=== PATIENT | female | born 1985 | race Hispanic/Latino ===

== ENCOUNTER 2018-01-02 21:10 | Emergency (ER) | payer OTHER ==
--- NOTE | 2018-01-02 22:25 | ED PDOC ---
HPI: Female Pain Time Seen by Provider: 01/02/18 22:11 Chief Complaint (Nursing): Female Genitourinary Chief Complaint (Provider): crampy abd pain/ vaginal spotting History Per: Patient (32 y/o female LMP 09/17/2017 here for evaluation of lower abdominal cramping this week and vaginal spotting today. Has appt with Dr. Lagunas manager sap but has not seen as of yet. Denies any dysuria.) Past Medical History Reviewed: Historical Data, Nursing Documentation, Vital Signs Vital Signs: Last Vital Signs Temp 98.1 F 01/02/18 21:48 Pulse 86 01/02/18 21:48 Resp 18 01/02/18 21:48 BP 122/72 01/02/18 21:48 Pulse Ox 100 01/02/18 21:48 - Medical History PMH: Asthma - Family History Family History: States: Unknown Family Hx - Home Medications Home Medications: Ambulatory Orders Medication Instructions Recorded Cyclobenzaprine [Cyclobenzaprine 10 mg PO TID #20 tab 09/02/16 HCl] Ibuprofen [Motrin] 600 mg PO Q6 #20 tab 09/02/16 - Allergies Allergies/Adverse Reactions: Allergies Allergy/AdvReac Type Severity Reaction Status Date / Time Penicillins Allergy RASH Verified 01/02/18 21:48 Review of Systems ROS Statement: Except As Marked, All Systems Reviewed And Found Negative Physical Exam - Reviewed Nursing Documentation Reviewed: Yes Vital Signs Reviewed: Yes - Physical Exam Appears: Positive for: Well, Non-toxic, No Acute Distress Head Exam: Positive for: ATRAUMATIC, NORMAL INSPECTION, NORMOCEPHALIC Skin: Positive for: Normal Color, Warm, DRY Eye Exam: Positive for: EOMI, Normal appearance, PERRL ENT: Positive for: Normal ENT Inspection Neck: Positive for: Normal, Painless ROM Cardiovascular/Chest: Positive for: Regular Rate, Rhythm Respiratory: Positive for: CNT, Normal Breath Sounds Gastrointestinal/Abdominal: Positive for: Normal Exam, Soft Back: Positive for: Normal Inspection Extremity: Positive for: Normal ROM Neurologic/Psych: Positive for: Alert, Oriented - Laboratory Results Result Diagrams: 01/02/18 22:15 01/02/18 22:15 - ECG O2 Sat by Pulse Oximetry: 100 - Progress ED Course And Treament: transvaginal US: COMPARISON: No relevant prior studies available. FINDINGS: Gestation: Gestational sac. Yolk sac. No pole. Mean sac diameter of 0.8 cm , out of range. Uterus/cervix: 1.4 x 0.6 x 2.1 cm collection along gestational sac. Closed cervix. Ovaries: Normal ovaries. No adnexal masses. Free fluid: No significant free fluid. IMPRESSION: 1. Intrauterine , of uncertain viability. Recommend followup. 2. Subchorionic hemorrhage. Thank you for allowing us to participate in the care of your patient. Dictated and Authenticated by: Gregorio Oconnor MD Disposition - Clinical Impression Clinical Impression: Subchorionic hemorrhage, Threatened miscarriage in early - Patient ED Disposition Is Patient to be Admitted: No - Disposition Disposition: Routine/Home Disposition Time: 00:13 Condition: FAIR Instructions: Bleeding With (DC), Threatened Miscarriage (DC)
[2018-01-02 22:39] LABS: BASO # 0.1 K/uL (0.0-0.2); BASO % 0.6 % (0.0-2.0); EOS # 0.4 K/uL (0.0-0.7); EOS % 3.5 % (0.0-4.0); HEMOGLOBIN 12.3 g/dL (12.0-16.0); LYMPH # 3.1 K/uL (1.0-4.3); LYMPH % 29.7 % (20.0-40.0); MEAN CELL VOLUME 83.4 fl (81.0-99.0); MEAN CORPUSCULAR HEMOGLOBIN 27.4 pg (27.0-31.0); MEAN CORPUSCULAR HGB CONC 32.9 g/dL (33.0-37.0); MEAN PLATELET VOLUME 7.5 fl (7.2-11.7); MONO # 0.7 K/uL (0.0-0.8); MONO % 6.8 % (0.0-10.0); NEUT # 6.3 K/uL (1.8-7.0); NEUT % 59.4 % (50.0-75.0); RBC 4.47 Mil/uL (3.80-5.20); RED CELL DISTRIBUTION WIDTH 14.2 % (11.5-14.5); WHITE BLOOD COUNT 10.6 K/uL (4.8-10.8)
[2018-01-02 22:50] LABS: SQUAMOUS EPITHIAL 3 /hpf (0-5); URINE BACTERIA OCC (<OCC); URINE BILIRUBIN NEGATIVE (NEGATIVE); URINE BLOOD SMALL (NEGATIVE); URINE CLARITY SLIGHTY-CLOUDY (Clear); URINE COLOR YELLOW (YELLOW); URINE GLUCOSE (UA) NEG (Normal); URINE PROTEIN NEGATIVE (NEGATIVE); URINE UROBILINOGEN 0.2-1.0 mg/dL (0.2-1.0)
[2018-01-02 22:51] LABS: BLOOD UREA NITROGEN 9 mg/dl (7-17); CALCIUM 9.3 mg/dL (8.4-10.2); GFR AFRICAN-AMERICAN > 60; GFR NON-AFRICAN AMERICAN > 60; URINE LEUKOCYTE ESTERASE NEGATIVE Leu/uL (Negative)
[2018-01-03] MEDS ORDERED: Potassium Chloride 20 mEq ER Tab PO ONE (00:10)
[2018-01-03 00:35] VITALS: BP 130/86; PULSE 82; RESP 19; TEMP 98.6; O2SAT 99
--- NOTE | 2018-01-03 09:55 | US ---
PROCEDURE: OB Pelvic Ultrasound HISTORY: r/o ectopic LMP: 11/17/2017 COMPARISON: None available. FINDINGS: UTERUS: Gestational sac: Single intrauterine gestation. Measures 0.8 cm, out of range Yolk sac: Measures 0.3 cm. pole: Not yet identified Jina-gestational hemorrhage: 1.4 x 0.6 x 2.1 cm subchorionic bleed Date of delivery : 08/24/2018 (per LMP) Uterus measures 8.1 x 4.5 x 5.3 cm. Normal in size and appearance. CERVIX: Measures 3.6 cm. Long and closed. No cervical abnormality seen. RIGHT OVARY: Measures 2.6 x 1.2 x 2.1 cm. No mass lesion. Normal flow. LEFT OVARY: Measures 3.0 x 2.4 x 2.3 cm. No solid mass. Normal flow. FREE FLUID: None. OTHER FINDINGS: None. IMPRESSION: Single intrauterine gestation with yolk sac seen, but pole not yet identified. Small subchorionic bleed measuring up to 2.1 cm. Findings may represent early normal/ abnormal . Close clinical follow-up with serial pelvic sonography and serum beta HCG levels recommended.
== END 2018-01-03 00:40 | disposition home or self-care (01) ==
LOC: H.ER 21:10
DX: O20.0 Threatened abortion (principal); Z88.0 Allergy status to penicillin

== ENCOUNTER 2018-07-31 03:59 | Emergency (ER) | payer OTHER ==
[2018-07-31 04:38] VITALS: BMI 42.4
[2018-07-31] MEDS: Lactated Ringer's 1,000 ML IV SCH ×3 (04:50→08:52)
[2018-07-31 05:21] LABS: BASO % 0.4 % (0.0-2.0); EOS # 0.1 K/uL (0.0-0.7); EOS % 0.5 % (0.0-4.0); HEMOGLOBIN 12.1 g/dL (12.0-16.0); LYMPH # 0.7 K/uL (1.0-4.3); LYMPH % 6.3 % (20.0-40.0); MEAN CELL VOLUME 79.5 fl (81.0-99.0); MEAN CORPUSCULAR HEMOGLOBIN 26.4 pg (27.0-31.0); MEAN CORPUSCULAR HGB CONC 33.2 g/dL (33.0-37.0); MEAN PLATELET VOLUME 8.7 fl (7.2-11.7); MONO # 0.5 K/uL (0.0-0.8); MONO % 4.6 % (0.0-10.0); NEUT # 9.9 K/uL (1.8-7.0); NEUT % 88.2 % (50.0-75.0); PLATELET COUNT 241 K/uL (130-400); RBC 4.59 Mil/uL (3.80-5.20); RED CELL DISTRIBUTION WIDTH 14.7 % (11.5-14.5); WHITE BLOOD COUNT 11.2 K/uL (4.8-10.8)
[2018-07-31 05:26] LABS: ALBUMIN 3.6 g/dL (3.5-5.0); ALT/SGPT 18 U/L (9-52); AST/SGOT 19 U/L (14-36); BLOOD UREA NITROGEN 13 mg/dl (7-17); CALCIUM 9.2 mg/dL (8.4-10.2); GFR NON-AFRICAN AMERICAN > 60; URIC ACID 5.5 mg/Dl (2.2-7.5)
[2018-07-31 06:55] LABS: BANDS 5 % (0-2); LYMPHOCYTE 5 % (20-50); MONOCYTE 4 % (0-10); NEUTROPHIL 86 % (42-75); PLATELET ESTIMATE NORMAL (NORMAL); TOTAL CELLS COUNTED 100
[2018-07-31 06:56] LABS: ANISOCYTOSIS SLIGHT; SPHEROCYTES SLIGHT
[2018-07-31 07:53] LABS: SQUAMOUS EPITHIAL 2 /hpf (0-5); URINE BACTERIA OCC (<OCC); URINE BILIRUBIN NEGATIVE (NEGATIVE); URINE BLOOD NEGATIVE (NEGATIVE); URINE CLARITY CLOUDY (Clear); URINE COLOR YELLOW (YELLOW); URINE GLUCOSE (UA) NEG (NEGATIVE); URINE LEUKOCYTE ESTERASE NEG Leu/uL (Negative); URINE PROTEIN NEGATIVE (NEGATIVE); URINE UROBILINOGEN 0.2-1.0 mg/dL (0.2-1.0)
[2018-07-31] MEDS ORDERED: Promethazine 6.25 MG in Sodium Chloride 0.9% 50 ML IVPB ONE (08:21)
[2018-07-31] MEDS ORDERED: Lactated Ringer's 1,000 ML IV SCH (08:30)
[2018-07-31 16:52] VITALS: BP 111/52; PULSE 100; TEMP 97.7; O2SAT 98
--- NOTE | 2018-07-31 19:23 | OBDCSUM ---
Datetime: 07/31/2018 11:32 Discharged to, Provider: Home Follow up at, Provider: Dr. Liriano Disch Instr Activity: Normal activity Disch Instr Diet: Regular Discharge Time: 07/31/2018 11:32 Follow up in weeks, Provider: Next scheduled appt (Friday) Disch Referrals: None Discharge Comment, Provider: BRAT diet and increase as tolerated Discharge Diagnosis Prov Other: Gastroenteritis
--- NOTE | 2018-07-31 19:24 | OBHP ---
Datetime: 07/31/2018 12:00 Admit Comment, IP Provider: Addendum @ 12:00 - Patient seen and evaluated several times this morning . Had some improvement with Zofran but nausea persisted, given phenergan with improvement. Had severa l episodes of diarrhea but was able to tolerate PO liquids without issue. Lab work was negative and r eassuring, no signs of intraabdominal infection such as appendicitis. EFM was reactive and appropriat e. Patient felt comfortable with discharge home and return precautions given. She will make a follow- up appt with Dr. Liriano for next week. All questions answered, patient in stable condition. Diana Weber MD OB Fellow OB Hospitalist note: Agre with ntoe. I checked this patinet at 9am - SVE closed...cleared for dis charge today...spoke with PMD and aware MAHNDO Datetime: 07/31/2018 04:40 IP Adm Impression: , intrauterine IP Admit Plan: Observation/Evaluation Pelvic Type - PN: Not Done Extremities - PN: Normal Abdomen - PN: Normal Back - PN: Normal Breast - PN: Not Done Lungs - PN: Normal Heart - PN: Normal Thyroid - PN: Not Done Neurologic - PN: Normal HEENT - PN: Normal General - PN: Normal FHR - Baseline A Provider: 150 EGA AdmitDate IP: 35.1 Vital Signs Provider: Reviewed IP Chief Complaint: Maternal discomfort NICHD Variability Prov Fetus A: Moderate 6-25bpm NICHD Accel Fetus A IP Provider: 15X15 FHR Category Provider Fetus A: Category I NICHD Decel Fetus A IP Provider: None Genitourinary Exam: Not Done DTRs - PN: Not Done
== END 2018-07-31 11:32 | disposition home or self-care (01) ==
LOC: H.EROB2 03:59
DX: O26.93 Pregnancy related conditions, unspecified, third trimester (principal); R10.2 Pelvic and perineal pain; R19.7 Diarrhea, unspecified; Z3A.35 35 weeks gestation of pregnancy
CPT/HCPCS: 80053; 81003; 83615; 84550; 85025; 96361; 96374; 99283; J2405; J2550; J7120

== ENCOUNTER 2018-09-03 06:42 | Emergency (ER) | payer OTHER ==
[2018-09-03 18:36] VITALS: BP 124/81; PULSE 90; TEMP 98.2; O2SAT 100
[2018-09-03 19:44] VITALS: BMI 43.7
--- NOTE | 2018-09-04 01:08 | OBADHP ---
Datetime: 09/03/2018 20:58 Admit Comment, IP Provider: PNP: Dr. Liriano Pt is a 33 y/o at EGA of 40.0wk, LMP of 11/17/17, KARIE 09/03/18 presented for induction of lab or after being found to have oligo. Denies any vb, loss of fluid. She endorses +FM _ intermittent ctx . She denied any f/c/n/v/d/cp or sob. OBGYNx: Hematoma early in which resolved, 1 2012 PMHx: Asthma, SMA carrier, CF carrier Meds: Breo, Albuterol PRN, PNV All: penicillin (reaction unknown) FMHx: Dad-stomach ca-2010, Mom-thyroid ca- 2012 SurgHx: None SOCHx: Denies tobacco, alcohol or drug use ROS:all 12 points reviewed and are neg unless otherwise mentioned in HPI PE: obese female sitting upright breathing comfortably Cardio: s1s2 no murmurs Lungs: cta b/l Abd: soft, gravid, BS+, nontender, no rigidity, no guarding Ext: nonedematous A/P: Pt is a 33 y/o at EGA of 40.0wk, LMP of 11/17/17, KARIE 09/03/18 admitted for induction of labor after being found to have oligo. -Admit to unit -FHR monitoring -Cervidil Case discussed with Dr. Ivonne Deluca JP [place] Abdomen - PN: Normal Lungs - PN: Normal Heart - PN: Normal General - PN: Normal Gestation - Est Wks by US: 40.0 IP Hx Assessment: The History has been Reviewed and is Current Vital Signs Provider: Reviewed IP Chief Complaint: Uterine contractions; Scheduled induction of labor NICHD Variability Prov Fetus A: Moderate 6-25bpm NICHD Accel Fetus A IP Provider: [id number] NICHD Decel Fetus A IP Provider: None EGA AdmitDate IP: 40.0 IP Admit Plan: Admit to unit Datetime: 09/03/2018 08:06 Extremities - PN: Normal HEENT - PN: Normal FHR - Baseline A Provider: 140 Membranes, Provider: Intact Contraction Comments Provider: Q6-7 Comments, ACOG Physical Exam: GEN: Lying in bed NAD HEENT: NCAT CARD: RRR + S1S2 RESP: CTA, no wheezing, rales or rhonchi GI: Gravid, + BS, no tenderness to palpation EXT: No edema, no calf tenderness Bimanual 1cm, thick and high FHR 140's, moderate variability, 15x15 accelerations, no decelerations Pool Provider: Negative FHR Category Provider Fetus A: Category I Dilatation, Provider: 1 IP Adm Impression: Term, intrauterine Datetime: 07/31/2018 04:40 Pelvic Type - PN: Not Done Back - PN: Normal Breast - PN: Not Done Thyroid - PN: Not Done Neurologic - PN: Normal Genitourinary Exam: Not Done DTRs - PN: Not Done
== END 2018-09-03 10:27 | disposition home or self-care (01) ==
LOC: H.EROB2 06:42 → H.L&D 07:14 → H.EROB2 10:27
DX: O26.93 Pregnancy related conditions, unspecified, third trimester (principal); R10.2 Pelvic and perineal pain; O26.853 Spotting complicating pregnancy, third trimester; O48.0 Post-term pregnancy; Z3A.40 40 weeks gestation of pregnancy

== ENCOUNTER 2018-09-03 19:15 | Inpatient (IN) | payer OTHER ==
[2018-09-03 21:13] VITALS: BMI 43.7
[2018-09-03 21:37] LABS: BASO # 0.1 K/uL (0.0-0.2); BASO % 0.7 % (0.0-2.0); EOS # 0.2 K/uL (0.0-0.7); HEMOGLOBIN 11.8 g/dL (12.0-16.0); LYMPH # 2.2 K/uL (1.0-4.3); LYMPH % 20.3 % (20.0-40.0); MEAN CELL VOLUME 80.5 fl (81.0-99.0); MEAN CORPUSCULAR HEMOGLOBIN 26.9 pg (27.0-31.0); MEAN CORPUSCULAR HGB CONC 33.4 g/dL (33.0-37.0); MEAN PLATELET VOLUME 9.6 fl (7.2-11.7); MONO # 0.7 K/uL (0.0-0.8); NEUT # 7.8 K/uL (1.8-7.0); RBC 4.38 Mil/uL (3.80-5.20); RED CELL DISTRIBUTION WIDTH 17.5 % (11.5-14.5)
[2018-09-03 21:39] LABS: EOS % 1.6 % (0.0-4.0); MONO % 6.4 % (0.0-10.0); NRBC % 0.1 % (0.0-0.0)
[2018-09-03 22:29] VITALS: RESP 18
[2018-09-04] MEDS ORDERED: Lactated Ringer's 1,000 ML IV SCH (09:45)
[2018-09-04] MEDS ORDERED: Fentanyl/Bupivacaine HCl 250 ML EPI ONE (10:20)
[2018-09-04] MEDS ORDERED: Bupivacaine HCl 0.5% PF (30 ml) Inj ONE (10:33)
[2018-09-04] MEDS: Lactated Ringer's 1,000 ML IV SCH ×4 (10:45→21:45)
[2018-09-04] MEDS ORDERED: Oxytocin 30 UNIT in NS 500 ml 30 UNITS/500 ML BAG IV ONE (13:34)
[2018-09-05] MEDS ORDERED: OXYTOCIN/0.9 % NS 20 UNIT/1,000 ML BAG IV ONE (00:10)
[2018-09-05] MEDS ORDERED: Oxytocin 30 UNIT in NS 500 ml 30 UNITS/500 ML BAG IV ONE (00:10)
[2018-09-05] MEDS: Lactated Ringer's 1,000 ML IV SCH (01:00)
[2018-09-05] MEDS ORDERED: Lactated Ringer's 1,000 ML IV ONE (02:05)
[2018-09-05] MEDS ORDERED: Morphine 1 mg/ml preservative-free Inj(Duramorph) ONE (02:25)
[2018-09-05] MEDS ORDERED: Bupivacaine HCl 0.5% PF (30 ml) Inj ONE (02:25)
[2018-09-05] MEDS ORDERED: Oxycodone/Acetaminophen 5/325 mg Tab PO PRN ×3 (03:57→09:50)
--- NOTE | 2018-09-05 04:26 | OBDS ---
DELIVERY PERSONNEL Delivery Doctor: Ridge Solano MD Screen Printing Inspector: Polly BEDOYA Anesthesiologist: Dr. Chauhan Resident: Dr. Chapman MATERNAL INFORMATION Delivery Anesthesia: Epidural Medications in Delivery: Pitocin, Clindamycin, Gentamicin Placenta Cultured: No Provider Comments: Pre-op dx: 33 yo G1 at 40+2 wks w/ arrest of descent and nonreassuring trac ing Post-op dx: Same Procedure: Primary low transverse section Surgeon: Russ Assistants: Drs. Diana Weber, OB fellow and Emeli Chapman, PGY-1 Anesthesia: Epidural Anesthesiologist: Dr. Chauhan Findings: Viable male infant deliverd through thick meconium at 0255. Apgars 9 and 9. Wt 8#5.3. NL appearing uterus, tubes, and ovaries Complications: None EBL: 900 mL LABOR SUMMARY EDC: 09/03/2018 00:00 No. Babies in Womb: 1 Attempted: No Labor Anesthesia: Epidural LABOR INFORMATION Reason for Induction: Oligohydramnios Cervical Ripening Agents: Cervidil Oxytocin: Augmentation Group B Beta Strep: Negative Antibiotics # of Doses: N/A Antibiotics Time of Last Dose: N/A Steroids Given: None Reason Steroids Not Administered: Not Applicable MEMBRANES Membranes Rupture Method: Spontaneous Rupture of Membranes: 09/04/2018 18:15 Length of Rupture (hrs): 8.67 Amniotic Fluid Color: Clear Amniotic Fluid Amount: Moderate Amniotic Fluid Odor: Normal STAGES OF LABOR Stage 3 hrs: 0 Stage 3 min: 1 CSECTION DELIVERY Primary Indication: Arrest of Descent Secondary Indication: Nonreassuring Status CSection Urgency: Non Elective CSection Incidence: Primary Labor: Labor Elective: Nonelective CSection Incision: Lower Uterine Transverse BABY A INFORMATION Infant Delivery Date/Time: 09/05/2018 02:55 Method of Delivery: Born in Route : No : N/A Forceps: N/A Vacuum Extraction: N/A Shoulder Dystocia : No SHOULDER DYSTOCIA BABY A Infant Delivery Date/Time: 09/05/2018 02:55 PRESENTATION/POSITION BABY A Presentation: Cephalic Cephalic Presentation: Vertex Breech Presentation: N/A PLACENTA INFORMATION BABY A Placenta Delivery Time : 09/05/2018 02:56 Placenta Method of Delivery: Manual Removal Placenta Status: Delivered SCORES BABY A Heart Rate 1 min: >100 bpm Resp Effort 1 min: Good Cry Reflex Irritability 1 min: Cough or Sneeze or Pulls Away Muscle Tone 1 min: Active Motion Color 1 min: Body [place], Extremities Blue Resuscitation Effort 1 min: N/A SCORE 1 MIN: 9 Heart Rate 5 min: >100 bpm Resp Effort 5 min: Good Cry Reflex Irritability 5 min: Cough or Sneeze or Pulls Away Muscle Tone 5 min: Active Motion Color 5 min: Body [place], Extremities Blue Resuscitation Effort 5 min: N/A SCORE 5 MIN: 9 INFANT INFORMATION BABY A Gestational Age at Delivery: 40.2 Gestational Status: Post-term Infant Outcome : Liveborn Infant Condition : Stable Sex: Male IDENTIFICATION/MEDS BABY A ID Band Number: [id number] ID Band Location: Left Leg; Left Arm WEIGHT/LENGTH BABY A Infant Birthweight (gms): 3780 Weight (lb): 8 Infant Weight (oz): 5 CORD INFORMATION BABY A No. Cord Vessels: 3 Nuchal Cord : N/A Suction: Mouth; Nose
[2018-09-05] MEDS ORDERED: DiphenhydrAMINE 50 mg/ml Inj IVP PRN ×2 (07:57→09:50)
[2018-09-05] MEDS ORDERED: Multivitamin With Minerals Tab PO SCH ×2 (09:00)
[2018-09-05] MEDS ORDERED: Simethicone 80 mg Chewtab PO SCH (10:00)
[2018-09-05] MEDS: Simethicone 80 mg Chewtab PO SCH ×3 (11:39→21:47)
--- NOTE | 2018-09-05 13:45 | OP ---
PROCEDURE DATE: 09/05/2018 PREOPERATIVE DIAGNOSES: This is a 33-year-old G1 at 40 weeks and 2 days with arrest of descent and nonreassuring heart tracing. POSTOPERATIVE DIAGNOSES: This is a 33-year-old G1 at 40 weeks and 2 days with arrest of descent and nonreassuring heart tracing. PROCEDURE: Primary low-transverse section. SURGEON: Cate Solano MD ASSISTANTS: Drs. Diana Weber, OB fellow and Emeli Sue, PGY-1 TYPE OF ANESTHESIA: Epidural. ANESTHESIOLOGIST: Dr. Chauhan FINDINGS: A viable male infant delivered through thick meconium at 02:55, Apgars 9 and 9 at 1 and 5 minutes respectively and the weight was 8 pounds 5.3 ounces. Normal appearing uterus, tubes, and ovaries. COMPLICATIONS: None. ESTIMATED BLOOD LOSS: 900 mL. DESCRIPTION OF PROCEDURE: The patient was taken to the operating room and the epidural anesthesia was bolused. A Ward was already in place in the bladder. She was prepped and draped in the normal sterile fashion in the dorsal supine position with a leftward tilt. A Pfannenstiel skin incision was then made with the scalpel and carried through to the underlying layer of fascia with the Bovie. The fascia was incised in the midline. The incision was extended laterally with the Villarreal scissors. The inferior aspect of the fascial incision was then grasped with Sana clamps, elevated, and the underlying rectus muscles dissected off bluntly and with Villarreal scissors. Attention was then turned to the superior aspect of this incision, which in a similar fashion was grasped, tented up with the Sana clamps, and the rectus muscles were dissected off bluntly and with Villarreal scissors. The rectus muscles were then in the midline, the peritoneum was identified and entered digitally. The peritoneal incision was then extended superiorly and inferiorly with good visualization of the bladder. The bladder blade was then inserted and the vesicouterine peritoneum was identified, grasped with the pickups, and entered sharply with the Metzenbaum scissors. The incision was then extended laterally and the bladder flap was created digitally. The bladder blade was then re-inserted and in the lower uterine segment was incised in transverse fashion with the scalpel. The uterine incision was then extended laterally with the banded scissors. The bladder blade was removed and the infant's head delivered atraumatically. The was handed off to the awaiting fuel house attendant. Cord gases were sent and cord blood was collected. The placenta was then delivered as the uterus was massaged. The uterus was then exteriorized and cleared of all clots and debris with a dry sponge curettage. There was a midline extension that was first repaired with a running 2-0 Vicryl stitch. The uterine incision was then repaired with 0 Vicryl in a running, locked fashion. A second layer of the same suture was used in an imbricating fashion to obtain hemostasis and to reinforce the incision. The abdomen was well irrigated. The uterus was then returned to the abdomen. The gutters were cleared of all clots. The uterine incision was reexamined and found to be hemostatic. The peritoneum was then closed with 2-0 chromic. The rectus muscles were re-approximated with a running stitch of 0 Chromic. The fascia was reapproximated with 0 Vicryl in a running fashion. Subcutaneous fat was then well irrigated. The space of the subcutaneous fat was closed with a running stitch of 2-0 plain gut. The skin was then closed with subcuticular stitch of 3-0 Vicryl on a Jaswant needle. The patient tolerated the procedure well. Sponge, lap, and needle counts were correct. The patient had received 900 mg of clindamycin and 120 mg of gentamicin prior to the procedure. The patient was taken to the recovery room in stable condition. Cate Solano MD LUI
[2018-09-05] MEDS: Oxycodone/Acetaminophen 5/325 mg Tab PO PRN ×2 (17:01→20:47)
[2018-09-06] MEDS: Oxycodone/Acetaminophen 5/325 mg Tab PO PRN ×3 (01:31→11:23)
[2018-09-06] MEDS: Simethicone 80 mg Chewtab PO SCH ×4 (03:59→21:54)
--- NOTE | 2018-09-06 08:05 | OBPPN ---
Datetime: 09/06/2018 07:54 PP Pain Prov: Within normal limits PP Nausea Prov: Denies PP Flatus Prov: Yes PP BM Prov: No PP Abdomen/Uterus Prov: Normal PP Lochia Prov: Normal PP Extremities Prov: Normal PP C/S Incision Prov: Normal PP Comments Phys Exam Prov: Abdomen: softly distended Incision intact w/ steri strips PP Impression Prov: Normal progression PP Plan Prov: Continue present management PP Progress Note Prov: POD 1 s/p primary section for arrest of descent, bottle feeding, rep orts baby isn't latching, reports that she has abd pain, denies incisional pain. Encouraged gas meds and ambulation Vital Signs Provider PP: Reviewed
[2018-09-06] MEDS: Multivitamin With Minerals Tab PO SCH (08:08)
[2018-09-06 09:54] LABS: HEMOGLOBIN 8.4 g/dL (12.0-16.0); MEAN CELL VOLUME 81.3 fl (81.0-99.0); MEAN CORPUSCULAR HEMOGLOBIN 26.6 pg (27.0-31.0); MEAN CORPUSCULAR HGB CONC 32.7 g/dL (33.0-37.0); RBC 3.17 Mil/uL (3.80-5.20); RED CELL DISTRIBUTION WIDTH 17.6 % (11.5-14.5); WHITE BLOOD COUNT 13.2 K/uL (4.8-10.8)
[2018-09-07] MEDS: Simethicone 80 mg Chewtab PO SCH ×3 (04:01→10:53)
[2018-09-07] MEDS: Multivitamin With Minerals Tab PO SCH (08:32)
--- NOTE | 2018-09-07 10:22 | OBDCSUM ---
Datetime: 09/07/2018 10:19 Discharged to, Provider: Home Follow up at, Provider: OB Disch Instr Activity: Normal activity Disch Instr Diet: Regular Discharge Instructions, Provider: Routine instructions given Discharge Diagnosis, Provider: Term Delivered Discharge Time: 09/07/2018 10:19 Follow up in weeks, Provider: 1 wk and 6 wks Disch Referrals: None Contraception discussed, Prov: Yes
--- NOTE | 2018-09-07 10:22 | OBPPN ---
Datetime: 09/07/2018 10:18 PP Pain Prov: Within normal limits PP Nausea Prov: Denies PP Flatus Prov: Yes PP BM Prov: Yes PP Breasts Prov: Normal PP Heart Prov: Normal PP Lungs Prov: Normal PP Abdomen/Uterus Prov: Normal PP Lochia Prov: Normal PP Vulva/Perineum Prov: Normal PP CVA Tenderness Prov: Normal PP Extremities Prov: Normal PP Comments Phys Exam Prov: Fundus firm under umbilicus Incision clean/dry/intact PP Impression Prov: Normal progression PP Plan Prov: Continue present management PP Progress Note Prov: Patient denies CP, no SOB, no N/V, tolerating PO diet, ambulating/voiding wel l, mild lochia, abdominal pain tolerable with meds, +flatus, +BM A/P POD #2 1. discharge patient home 2. Discharge instructions reviewed IP PP Procedures: None Vital Signs Provider PP: Reviewed; Within Normal Limits
[2018-09-07] MEDS ORDERED: Measles, Mumps, and Rubella 0.5 ML VIAL SC ONE (12:30)
[2018-09-07 19:30] VITALS: BP 121/77; PULSE 82; TEMP 97.8; O2SAT 98
== END 2018-09-07 15:08 | disposition home or self-care (01) | DRG 787 ==
LOC: H.L&D 21:13 → H.OB/GYN 09-05 08:30
PROVIDERS: ADMIT Obstetrics & Gynecology; ATTEND Obstetrics & Gynecology
PROC: 4A1HXCZ Monitoring of Products of Conception, Cardiac Rate, External Approach (ICD-10-PCS; 2018-09-03)
PROC: 10D00Z1 Extraction of Products of Conception, Low, Open Approach (ICD-10-PCS; principal; 2018-09-05)
DX: O76 Abnormality in fetal heart rate and rhythm complicating labor and delivery (principal); O41.03X0 Oligohydramnios, third trimester, not applicable or unspecified; Z3A.40 40 weeks gestation of pregnancy; Z37.0 Single live birth; O77.0 Labor and delivery complicated by meconium in amniotic fluid; O62.1 Secondary uterine inertia